=== PATIENT | male | born 1975 | race Caucasian/White ===

== ENCOUNTER 2016-10-13 13:51 | Emergency (ER) | payer OTHER ==
[~2016-10-13] VITALS: Ht 188 cm; Wt 109.0 kg
[~2016-10-13 13:51] MED LIST: CYCL5TAB PO; GABA300C3 PO; VALI10TA PO
[2016-10-13 14:03] VITALS: BP 174/79; PULSE 101; RESP 18; TEMP 98.9; O2SAT 98
[2016-10-13] MEDS ORDERED: DIAZ10 PO (14:17)
[2016-10-13] MEDS ORDERED: CIAL20TA PO (14:18)
--- NOTE | 2016-10-13 14:42 | PD ---
HPI Chief Complaint: Laceration/Skin Injury Time Seen by Provider: 14:29 Travel History International Travel<30 days: No Contact w/Intl Traveler<30days: No Traveled to known affect area: No History of Present Illness HPI 41-year-old male presents to the ED for evaluation of laceration of the chin and lip. Sustained just before arrival. Patient states that he tripped in his garage and landed on the tire of his skull scar. He denies loss of consciousness. On presentation he denies headache, dizziness, nausea, weakness , limitations to range of motion of the extremity. is at bedside and states that the patient also fell yesterday, striking his head on the tile floor. No loss of consciousness with that fall. PFSH Past Medical History Tetanus Vaccination: < 5 Years Social History Alcohol Use: Yes (occas) Tobacco Use: No Substance Use: No Allergies-Medications (Allergen,Severity, Reaction): Coded Allergies: No Known Allergies (Unverified , 09/03/14) Reported Meds & Prescriptions Reported Meds & Active Scripts Active Magic Mouthwash Adult Liq (Multi-Ingredient Mouthwash/Gargle) 120 Ml Susp 10 Ml SWISH-SWAL ACHS 7 Days Each 5mL contains: Nystatin 200,000units, Diphenhydramine 4.25mg, Viscous Lidocaine 10mg, John syrup 0.8 mL Lortab (Hydrocodone-Acetaminophen) 7.5-325 Mg Tab 1 Tab PO Q6H PRN Reported Cialis (Tadalafil) 20 Mg Tab 20 Mg PO DAILY PRN Do not exceed 1 dose/day. Valium (Diazepam) 10 Mg Tab 20 Mg PO HS PRN Review of Systems Except as stated in HPI: all other systems reviewed are Neg Physical Exam Narrative GENERAL: Well-nourished, well-developed white male in no acute distress. SKIN: Warm and dry. 3 cm laceration below the midline of the mandible. 2 cm laceration just below the lower lip. 2 cm laceration on the ulnar aspect of the lower lip. Small superficial lacerations on the bridge of the nose. Abrasion of the left knee. Cephalohematoma on the posterior aspect of the scalp. HEAD: Normocephalic. Atraumatic. + raccoon eyes. No martinez sign. No tenderness to palpation of the skull. No bony step-offs. Nose deviates to the right. DENTAL: No malocclusion of the teeth. Tooth #8 has a broken veneer. Tooth #9 is impacted into the maxilla. There is a laceration over the upper alveolar bridge. Tooth #10 is fractured. No mobility of the alveolar ridges. EYES: No scleral icterus. No injection or drainage. PERRLA. EOMI. ENT: Pearly moody tympanic membrane is bilaterally. Nasal mucosa is moist. Oropharynx without erythema, edema or exudate. NECK: Supple, trachea midline. No JVD or lymphadenopathy. No midline tenderness to palpation. Patient retains full, active, painless range of motion of the neck. CARDIOVASCULAR: Regular rate and rhythm without murmurs, gallops, or rubs. 2+ DP and radial pulses bilaterally. RESPIRATORY: Breath sounds clear and equal bilaterally. No accessory muscle use. GASTROINTESTINAL: Abdomen soft, non-tender, nondistended. + Bowel sounds MUSCULOSKELETAL: No cyanosis, or edema. No tenderness to palpation or limitations to range of motion of the joints of the upper and lower extremities bilaterally. NEUROLOGICAL: Awake and alert. Cranial nerves II through XII intact. Motor and sensory grossly within normal limits. 5/5 muscle strength in all muscle groups. Normal speech. BACK: Nontender without obvious deformity. No CVA tenderness. No midline tenderness. Data Data Last Documented VS Vital Signs Date Time Temp Pulse Resp B/P (MAP) Pulse Ox O2 Delivery O2 Flow Rate FiO2 10/13/16 18:27 16 10/13/16 14:03 98.9 101 174/79 (110) [address] Brain W/O Iv Contrast(Rout) (10/13/16 14:37) Ct Facial Bones W/O Iv Cont (10/13/16 14:37) Lidocaine 1% Inj (50 Ml) (Xylocaine 1% I (10/13/16 14:45) Acetamin-Hydrocod 325-10 Mg ([place] 10-32 (10/13/16 18:00) MDM Medical Decision Making Medical Screen Exam Complete: Yes Emergency Medical Condition: Yes Differential Diagnosis Laceration versus dental fracture versus facial fracture versus need for tetanus immunization versus cephalohematoma versus other Narrative Course 41-year-old male presents to the ED for evaluation of laceration of the chin and lip. Sustained just before arrival. Patient states that he tripped in his garage and landed on the tire of his skull scar. He denies loss of consciousness. On presentation he denies headache, dizziness, nausea, weakness , limitations to range of motion of the extremity. is at bedside and states that the patient also fell yesterday, striking his head on the tile floor. No LOC reported. Vitals reviewed. Physical exam reveals multiple lacerations of the face, deviation of the nose to the right, bilateral black eyes, cephalohematoma on the posterior aspect of the scalp. Multiple fractures of the teeth. Initially about tooth #9 is missing but it was impacted into the maxilla with a laceration of the upper alveolar bridge. CT of the facial bones reveals nasal fractures and a fracture of the ridge of the maxilla but is otherwise unremarkable. CT of head unremarkable. Splinting of the avulsed incisor and laceration repair 3 was performed. Please see my procedure note for details. The patient tolerated the procedures well. He was prescribed as short course of narcotic pain medication, first dose administered in the ED. He has follow-up tomorrow with the dentist. He is provided a CD of his CT results. He is instructed to keep his wounds clean, dry, covered, follow up with the dentist as planned. The patient and his indicated understanding of the instructions and are agreeable to the care plan. The patient is stable and discharged home. Procedures Procedure Narrative LACERATION LOCATION: Below midline of the mandible LENGTH: 2 cm jagged NUMBER OF STITCHES/SHYLA: 7 REPAIR: The area of the laceration was prepped with Betadine and sterilely draped. Bilateral mental block was performed with 1% lidocaine. The wound was copiously irrigated and explored without evidence of foreign body, tendon injury or neurovascular injury. The wound was closed using 4-0 Prolene. This was a single layer repair. The patient was advised to keep the wound clean and dry. Patient tolerated the procedure well. LACERATION LOCATION: Just below the lower lip LENGTH: 2 cm NUMBER OF STITCHES/SHYLA: 9 REPAIR: The area of the laceration was prepped with Betadine and sterilely draped. Bilateral mental block was performed with 1% lidocaine. The laceration was infiltrated with a small amount of 1% lidocaine. The wound was copiously irrigated and explored without evidence of foreign body, tendon injury or neurovascular injury. The wound was closed using 4-0 Prolene. This was a single layer repair. A sterile dressing was applied. The patient was advised to keep the dressing clean and dry. Patient tolerated the procedure well. LACERATION LOCATION: Buccal surface of the lower lip LENGTH: 2.5 cm NUMBER OF STITCHES/SHYLA: 11 REPAIR: The area of the laceration was prepped with Betadine and sterilely draped. The laceration was infiltrated with 1% lidocaine. The wound was copiously irrigated and explored without evidence of foreign body, tendon injury or neurovascular injury. The wound was closed using 3-0 Vicryl. This was a 2 layer repair. A sterile dressing was applied. The patient was advised to keep the dressing clean and dry. Patient tolerated the procedure well. Avulsed incisor splinting: Tooth #8 was disimpacted from the maxilla. He was held in near anatomical place and a temporary splint was applied with Dermabond and nasal bridge from a NIOSH mask. Diagnosis Primary Impression: Facial laceration Qualified Codes: S01.81XA - Laceration without foreign body of other part of head, initial encounter Additional Impressions: Lip laceration Qualified Codes: S01.511A - Laceration without foreign body of lip, initial encounter Fracture of dental jainism Avulsion fracture of tooth with routine healing Referrals: Dentist Patient Instructions: Care For Your Stitches (ED), Facial Laceration (ED), General Instructions Additional Instructions: Rest, hydrate. You may bathe normally. Do not submerge the wound. After bathing pat of wound dry. Allow the wound to air dry for 10-15 minutes. Apply a thin layer of antibiotic ointment and a clean, dry dressing. Pain medications every 4-6 hours as needed. Follow-up with the dentist tomorrow as planned. Suture evaluation and removal in 5-7 days. The sutures inside her mouth will dissolve on their own. Return to the ED for any urgent or emergent medical condition. Med/Other Pt SpecificInfo: Prescription(s) given Scripts Cqikzfdd-Eiqtnptcgijgwsk-Ihtfncrpe Liq (Magic Mouthwash Adult Liq) 120 Ml Susp 10 ML SWISH-SWAL ACHS for Mouth sores for 7 Days, #120 ML 0 Refills Each 5mL contains: Nystatin 200,000units, Diphenhydramine 4.25mg, Viscous Lidocaine 10mg, John syrup 0.8 mL Prov: Haydee Lopez MD 10/13/16 Hydrocodone-Acetaminophen (Lortab) 7.5-325 Mg Tab 1 TAB PO Q6H Y for PAIN, #20 TAB 0 Refills Prov: Haydee Lopez MD 10/13/16 Disposition: 01 DISCHARGE HOME Condition: Stable Corie Cruz Oct 13, 2016 14:42
[2016-10-13] MEDS ORDERED: LIDOCAINE HCL 1% 50 ML VIAL INFIL ONE (14:45)
--- NOTE | 2016-10-13 15:22 | RADRPT ---
EXAM DATE/TIME: 10/13/2016 15:04 [facility] COMPARISON: No previous studies available for comparison. INDICATIONS : Fell this morning. Hit mouth and chin. RADIATION DOSE: 61.09 CTDIvol (mGy) MEDICAL HISTORY : Hypertension. SURGICAL HISTORY : None. ENCOUNTER: Initial ACUITY: 1 day PAIN SCALE: 6/10 LOCATION: cranial TECHNIQUE: Multiple contiguous axial images were obtained of the head. Using automated exposure control and adj ustment of the mA and/or kV according to patient size, radiation dose was kept as low as reasonably a chievable to obtain optimal diagnostic quality images. DICOM format image data is available electro nically for review and comparison. FINDINGS: CEREBRUM: The ventricles are normal for age. No evidence of midline shift, mass lesion, hemorrhage or acute in farction. No extra-axial fluid collections are seen. POSTERIOR FOSSA: The cerebellum and brainstem are intact. The 4th ventricle is midline. The cerebellopontine angle i s unremarkable. EXTRACRANIAL: The visualized portion of the orbits is intact. SKULL: The calvaria is intact. No evidence of skull fracture. Fracturing of the nose can be partly seen on the study. The patient is scheduled for dedicated CT of the face. CONCLUSION: No bleed or other acute intracranial abnormality. Rufino Krueger MD on October 13, 2016 at 15:19 Board Certified Radiologist. This report was verified electronically.
--- NOTE | 2016-10-13 15:28 | RADRPT ---
EXAM DATE/TIME: 10/13/2016 15:04 [facility] COMPARISON: No previous studies available for comparison. INDICATIONS : Fell this morning. Hit mouth and chin. RADIATION DOSE: 35.03 CTDIvol (mGy) MEDICAL HISTORY : Hypertension. SURGICAL HISTORY : None. ENCOUNTER: Initial ACUITY: 1 day PAIN SCORE: 6/10 LOCATION: facial TECHNIQUE: Volumetric scanning of the facial bones was performed. Using automated exposure control and adjustme nt of the mA and/or kV according to patient size, radiation dose was kept as low as reasonably achiev able to obtain optimal diagnostic quality images. DICOM format image data is available electronic[employer]sQuest y for review and comparison. FINDINGS: There is a comminuted nasal bone fracture with mild displacement of multiple fracture fragments. A mi nimally displaced fracture of the tip of the maxillary spine is present. The left medial incisor is d islodged from the maxilla and displaced into the premaxillary soft tissues. The calvarium is intact. The orbits are symmetric and intact. Zygomatic arches are intact. The mandib le and temporomandibular joints are intact. CONCLUSION: Nasal bone and maxillary spine fractures. Left medial incisor is dislodged from the maxilla. Rufino Marques MD on October 13, 2016 at 15:18 Board Certified Radiologist. This report was verified electronically.
[2016-10-13] MEDS ORDERED: HYDR-3534 PO (17:50)
[2016-10-13] MEDS ORDERED: MAGICADU2 SWISH-SWAL (17:51)
[2016-10-13] MEDS ORDERED: ACETAMINOPHEN/HYDROcodone 325 MG/10 MG TAB PO ONE (18:00)
[2016-10-13 18:27] VITALS: RESP 16
== END 2016-10-13 18:28 | disposition home or self-care (01) ==
LOC: PHEFT 13:51
DX: S01.81XA Laceration without foreign body of other part of head, initial encounter (principal); S01.511A Laceration without foreign body of lip, initial encounter; S02.5XXA Fracture of tooth (traumatic), initial encounter for closed fracture; W01.0XXA Fall on same level from slipping, tripping and stumbling without subsequent striking against object, initial encounter; Y92.008 Other place in unspecified non-institutional (private) residence as the place of occurrence of the external cause; Y99.8 Other external cause status
CPT/HCPCS: 12013; 12051; 70450; 70486